=== PATIENT | female | born 1980 | race Hispanic/Latino ===

== ENCOUNTER 2017-03-05 13:20 | Outpatient (CLI) | payer BC ==
--- NOTE | 2017-03-05 15:52 | RAD ---
LEFT KNEE FOUR VIEW 03/05/17 HISTORY: N25.562 COMPARISON: Knee radiograph 2013. FINDINGS: There is minimal medial compartment narrowing. Small osteophytes involve all three compartments. No j oint effusion. No acute fracture or malalignment. IMPRESSION: Low grade degenerative disease medial compartment. POS: [facility]
== END 2017-03-05 13:21 | disposition home or self-care (01) ==
LOC: SCSRAD 13:20
PROVIDERS: ATTEND Family Medicine
DX: M25.562 Pain in left knee (principal); M17.12 Unilateral primary osteoarthritis, left knee

== ENCOUNTER 2018-05-09 12:23 | Emergency (ER) | payer BC ==
[2018-05-09] MEDS ORDERED: Ketorolac Tromethamine 60 MG/2 ML VIAL ONE (13:55)
== END 2018-05-09 14:26 | disposition home or self-care (01) ==
LOC: ERS 12:23
DX: J06.9 Acute upper respiratory infection, unspecified (principal); M06.9 Rheumatoid arthritis, unspecified; E11.9 Type 2 diabetes mellitus without complications; I10 Essential (primary) hypertension
CPT/HCPCS: 87804; 96372; J1885

== ENCOUNTER 2018-12-02 13:36 | Outpatient (CLI) | payer BC ==
--- NOTE | 2018-12-02 14:54 | MMO ---
Bilateral MAMMO Bilat Screen [facility]DI+[facility]ONG. CLINICAL HISTORY: Patient is 38 years old and is seen for screening. The patient has the following family history of breast cancer: maternal grandmother and maternal aunt. VIEWS: The views performed were: bilateral craniocaudal with tomosynthesis and bilateral mediolateral oblique with tomosynthesis. This study has been interpreted with the assistance of computer-aided detection. MAMMOGRAM FINDINGS: There are scattered fibroglandular densities. 11 mm nodule posterior mid left breast. In the right breast, there are no suspicious masses, calcifications or areas of architectural distortion. IMPRESSION: FINDING IN THE LEFT BREAST REQUIRES ADDITIONAL EVALUATION. ADDITIONAL IMAGING. THE RESULTS OF THIS EXAM WERE SENT TO THE PATIENT. ACR BI-RADS Category 0 - Incomplete: Need additional imaging evaluation. [facility] will notify the patient of the need for additional imaging services. MAMMOGRAPHY NOTE: 1. A negative mammogram report should not delay a biopsy if a dominant of clinically suspicious mass is present. 2. Approximately 10% to 15% of breast cancers are not detected by mammography. 3. Adenosis and dense breasts may obscure an underlying neoplasm. Reported by: TANYA REDDY MD Electonically Signed: [id number]
== END 2018-12-02 13:37 | disposition home or self-care (01) ==
LOC: BICMAMMO 13:36
PROVIDERS: ATTEND Family Medicine
DX: Z12.31 Encounter for screening mammogram for malignant neoplasm of breast (principal); Z80.3 Family history of malignant neoplasm of breast
CPT/HCPCS: 77063; 77067

== ENCOUNTER 2018-12-10 13:57 | Outpatient (CLI) | payer BC ==
--- NOTE | 2018-12-10 14:31 | MMO ---
Left Breast MAMMO Unilat Diag DDI LT+JONG. CLINICAL HISTORY: Patient is 38 years old and is seen for additional evaluation requested at current screening. The patient has the following family history of breast cancer: maternal grandmother and maternal aunt. The patient has no personal history of cancer. VIEWS: The views performed were: left craniocaudal with tomosynthesis; left mediolateral oblique with tomosynthesis; and left mediolateral with tomosynthesis. FILMS COMPARED: The present examination has been compared to prior imaging studies performed at [facility] on 12/02/2018 and 12/10/2018. This study has been interpreted with the assistance of computer-aided detection. MAMMOGRAM FINDINGS: There are scattered fibroglandular densities. There is a low density, oval mass measuring 10 millimeters with circumscribed margins seen in the central region of the left breast. The mass was shown to be a cyst on ultrasound. There are no suspicious masses, suspicious calcifications, or new areas of architectural distortion. IMPRESSION: THERE IS NO MAMMOGRAPHIC EVIDENCE OF MALIGNANCY. A ROUTINE FOLLOW-UP MAMMOGRAM IN 1 YEAR IS RECOMMENDED. THE RESULTS OF THIS EXAM WERE SENT TO THE PATIENT. ACR BI-RADS Category 2 - Benign finding MAMMOGRAPHY NOTE: 1. A negative mammogram report should not delay a biopsy if a dominant of clinically suspicious mass is present. 2. Approximately 10% to 15% of breast cancers are not detected by mammography. 3. Adenosis and dense breasts may obscure an underlying neoplasm. Reported by: CRYSTAL GREEN MD Electonically Signed: [id number]
--- NOTE | 2018-12-10 14:54 | ULT ---
LIMITED LEFT BREAST ULTRASOUND: DATE: 12/10/2018. PROVIDED CLINICAL HISTORY: Abnormal mammogram. FINDINGS: Limited sonographic interrogation of the left breast was performed in the region of mammographic conc leeroy. A simple-appearing cyst is seen. No concerning sonographic findings are evident. IMPRESSION: BIRADS category 2 - benign findings. Annual screening mammography recommended. POS: OFF
== END 2018-12-10 13:58 | disposition home or self-care (01) ==
LOC: BICMAMMO 13:57
PROVIDERS: ATTEND Family Medicine
DX: R92.2 Inconclusive mammogram (principal); R92.8 Other abnormal and inconclusive findings on diagnostic imaging of breast
CPT/HCPCS: G0279

== ENCOUNTER 2019-09-30 10:32 | Outpatient (CLI) | payer OTHER ==
--- NOTE | 2019-09-30 11:12 | ULT ---
ULTRASOUND ABDOMEN: HISTORY: Abdominal pain, abnormal LFTs. FINDINGS: The liver demonstrates increased echogenicity consistent with fatty infiltration. No focal mass or ab normal biliary ductal dilation is seen. The spleen is mildly enlarged measuring 13.8 cm. The patient is post colostomy. The kidneys and visualized portions of the pancreas, aorta and IVC appear normal. The common duct measures 9mm in diameter. No free fluid is seen. IMPRESSION: 1. Fatty liver 2. Mild splenomegaly 3. Status post cholecystectomy with dilated common bile duct.
== END 2019-09-30 10:33 | disposition home or self-care (01) ==
LOC: BICULT 10:32
PROVIDERS: ATTEND Internal Medicine Rheumatology
DX: R79.89 Other specified abnormal findings of blood chemistry (principal); K76.0 Fatty (change of) liver, not elsewhere classified; R16.1 Splenomegaly, not elsewhere classified; K83.8 Other specified diseases of biliary tract; Z90.49 Acquired absence of other specified parts of digestive tract
CPT/HCPCS: 93975

== ENCOUNTER 2022-03-19 12:28 | Emergency (ER) | payer SELFPAY | END 2022-03-19 13:30 | disposition home or self-care (01) | LOC: ERS 12:28 | DX: L50.0 Allergic urticaria (principal) | CPT/HCPCS: 99282 ==

== ENCOUNTER 2023-01-10 15:46 | Outpatient (CLI) | payer OTHER | END 2023-01-10 15:47 | disposition home or self-care (01) | LOC: DTY/OP 15:46 | PROVIDERS: ATTEND Nurse Practitioner Family | DX: E11.9 Type 2 diabetes mellitus without complications (principal) | CPT/HCPCS: 97802 ==

== ENCOUNTER 2023-01-17 11:38 | Outpatient (CLI) | payer OTHER | END 2023-01-17 11:39 | disposition home or self-care (01) | LOC: DTY/OP 11:38 | PROVIDERS: ATTEND Nurse Practitioner Family | DX: E11.9 Type 2 diabetes mellitus without complications (principal) | CPT/HCPCS: 97802 ==

== ENCOUNTER 2023-01-18 09:28 | Outpatient (CLI) | payer OTHER | END 2023-01-18 09:29 | disposition home or self-care (01) | LOC: DTY/OP 09:28 | PROVIDERS: ATTEND Nurse Practitioner Family | DX: E11.9 Type 2 diabetes mellitus without complications (principal) | CPT/HCPCS: 97802 ==

== ENCOUNTER 2023-01-24 12:59 | Outpatient (CLI) | payer OTHER | END 2023-01-24 13:00 | disposition home or self-care (01) | LOC: DTY/OP 12:59 | PROVIDERS: ATTEND Nurse Practitioner Family | DX: E11.9 Type 2 diabetes mellitus without complications (principal) | CPT/HCPCS: 97802 ==

== ENCOUNTER 2023-01-25 09:27 | Outpatient (CLI) | payer OTHER | END 2023-01-25 09:28 | disposition home or self-care (01) | LOC: DTY/OP 09:27 | PROVIDERS: ATTEND Nurse Practitioner Family | DX: E11.9 Type 2 diabetes mellitus without complications (principal) | CPT/HCPCS: 97802 ==

== ENCOUNTER 2023-01-28 15:57 | Outpatient (CLI) | payer OTHER | END 2023-01-28 15:58 | disposition home or self-care (01) | LOC: DTY/OP 15:57 | PROVIDERS: ATTEND Nurse Practitioner Family | DX: E11.9 Type 2 diabetes mellitus without complications (principal) | CPT/HCPCS: 97802 ==

== ENCOUNTER 2023-01-29 10:31 | Outpatient (CLI) | payer OTHER | END 2023-01-29 10:32 | disposition home or self-care (01) | LOC: DTY/OP 10:31 | PROVIDERS: ATTEND Nurse Practitioner Family | DX: E11.9 Type 2 diabetes mellitus without complications (principal) | CPT/HCPCS: 97802 ==

== ENCOUNTER 2023-01-30 08:59 | Outpatient (CLI) | payer OTHER | END 2023-01-30 09:00 | disposition home or self-care (01) | LOC: DTY/OP 08:59 | PROVIDERS: ATTEND Nurse Practitioner Family | DX: E11.9 Type 2 diabetes mellitus without complications (principal) | CPT/HCPCS: 97802 ==

== ENCOUNTER 2023-01-31 15:32 | Outpatient (CLI) | payer OTHER | END 2023-01-31 15:33 | disposition home or self-care (01) | LOC: DTY/OP 15:32 | PROVIDERS: ATTEND Nurse Practitioner Family | DX: E11.9 Type 2 diabetes mellitus without complications (principal) | CPT/HCPCS: 97802 ==

== ENCOUNTER 2023-02-01 13:06 | Outpatient (CLI) | payer OTHER | END 2023-02-01 13:07 | disposition home or self-care (01) | LOC: DTY/OP 13:06 | PROVIDERS: ATTEND Nurse Practitioner Family | DX: E11.9 Type 2 diabetes mellitus without complications (principal) | CPT/HCPCS: 97802 ==

== ENCOUNTER 2023-02-04 15:54 | Outpatient (CLI) | payer OTHER | END 2023-02-04 15:55 | disposition home or self-care (01) | LOC: DTY/OP 15:54 | PROVIDERS: ATTEND Nurse Practitioner Family | DX: E11.9 Type 2 diabetes mellitus without complications (principal) | CPT/HCPCS: 97802 ==

== ENCOUNTER 2023-02-05 11:16 | Outpatient (CLI) | payer OTHER | END 2023-02-05 11:17 | disposition home or self-care (01) | LOC: DTY/OP 11:16 | PROVIDERS: ATTEND Nurse Practitioner Family | DX: E11.9 Type 2 diabetes mellitus without complications (principal) | CPT/HCPCS: 97802 ==

== ENCOUNTER 2023-02-12 08:40 | Emergency (ER) | payer OTHER ==
[2023-02-12] MEDS ORDERED: Ketorolac Tromethamine 30 MG/ML VIAL ONE (09:06)
[2023-02-12] MEDS ORDERED: Orphenadrine Citrate 60 MG/2 ML VIAL ONE (09:12)
== END 2023-02-12 09:40 | disposition home or self-care (01) ==
LOC: ERS 08:40
DX: M75.101 Unspecified rotator cuff tear or rupture of right shoulder, not specified as traumatic (principal); M54.2 Cervicalgia; I10 Essential (primary) hypertension; E11.9 Type 2 diabetes mellitus without complications; Z79.84 Long term (current) use of oral hypoglycemic drugs; Z79.899 Other long term (current) drug therapy
CPT/HCPCS: 96372; 99283; J1885; J2360

== ENCOUNTER 2023-03-14 21:20 | Inpatient (IN) | payer OTHER ==
[~2023-03-14 21:20] MED LIST: Iopamidol-370 76% 500 ML MDV (1 ML CHARGE) ONE
[2023-03-14 22:53] LABS: #Eosinphils 0.2 thou/uL (0.0-0.7); #Monocytes 0.4 thou/uL (0.11-0.59); #Neutrophils 7.4 thou/uL (1.40-6.50); %Basophils 0.2 % (0.0-1.0); %Eosinophils 1.9 % (0.0-10.0); %Lymphocytes 11.1 % (21.0-51.0); %Neutrophils 82.2 % (42.0-75.0); Hematocrit 30.5 % (36.0-47.0); Mean Corpuscular HGB CONC 29.5 g/dL (32.0-36.0); Mean Corpuscular Volume 77.8 fl (78.0-98.0); Mean Platelet Volume 10.5 fL (7.4-10.4); Platelet Count 357 10x3/uL (130-400); RBC Distribution Width 15.1 % (11.5-14.5); Red Blood Cell (RBC) Count 3.92 mill/uL (4.20-5.40)
[2023-03-14] MEDS ORDERED: Morphine 4 MG/ML VIAL ONE (23:16)
[2023-03-14 23:17] LABS: ALT (SGPT) 9 U/L (8-55); AST (SGOT) 14 U/L (5-34); Albumin 3.5 g/dL (3.5-5.0); Alkaline Phosphatase 69 U/L (40-110); Anion Gap 16 mmol/L (10-20); BUN (Urea Nitrogen) 11 mg/dL (7.0-18.7); Bilirubin, Total 0.6 mg/dL (0.2-1.2); Calc. Creatinine Clearance 0 mL/min (70-130); Calcium 8.9 mg/dL (7.8-10.44); Carbon Dioxide 22 mmol/L (22-29); Chloride 106 mmol/L (98-107); Estimated GFR 113; Globulin 3.8 g/dL (2.4-3.5); Glucose 212 mg/dL (70-105); Potassium 3.8 mmol/L (3.5-5.1); Protein, Total 7.3 g/dL (6.0-8.3); Sodium 140 mmol/L (136-145)
[2023-03-14 23:19] LABS: Troponin I 0.095 ng/mL (< 0.028)
[2023-03-14] MEDS ORDERED: Furosemide 40 MG (4 mL) VIAL ONE (23:46)
[2023-03-14] MEDS ORDERED: Aspirin Chewable 81 MG TAB ONE (23:46)
[2023-03-15] MEDS ORDERED: Ondansetron ODT 4 MG TAB PO PRN (00:23)
[2023-03-15] MEDS ORDERED: Acetaminophen 650 MG Suppository PR PRN (00:23)
[2023-03-15] MEDS ORDERED: Acetaminophen 325 MG TAB PO PRN (00:23)
[2023-03-15] MEDS ORDERED: hydrALAZINE 20 MG/ML VIAL SLOW IVP PRN (00:23)
[2023-03-15] MEDS ORDERED: Ondansetron PF 4 MG/2 ML Vial IVP PRN (00:23)
[2023-03-15] MEDS ORDERED: Dextrose 50% Abboject 50 ML SYRINGE SLOW IVP PRN (00:49)
[2023-03-15] MEDS ORDERED: Dextrose 5% in Water 1,000 ML IV PRN (00:49)
[2023-03-15] MEDS ORDERED: Glucagon 1 MG/ML KIT IM PRN (00:49)
[2023-03-15] MEDS ORDERED: HumaLOG 300 UNITS/3 ML VIAL SC PRN (00:49)
[2023-03-15 00:50] LABS: SARS-CoV-2 NAA Rapid Test Not Detected (NotDetected)
[2023-03-15] MEDS ORDERED: Electrolyte Replacement Protocol FS SCH (01:00)
[2023-03-15] MEDS: hydrALAZINE 20 MG/ML VIAL SLOW IVP PRN ×2 (01:09→11:10)
[2023-03-15] MEDS ORDERED: hydrALAZINE 20 MG/ML VIAL ONE (01:12)
[2023-03-15] MEDS ORDERED: Nitroglycerin 2% Ointment 1 INCH/1 GM Packet TOP SCH (01:15)
[2023-03-15 02:12] LABS: Magnesium 1.5 mg/dL (1.6-2.6)
[2023-03-15] MEDS ORDERED: Nitroglycerin 2% Ointment 1 INCH/1 GM Packet ONE (02:23)
[2023-03-15] MEDS ORDERED: Magnesium 2 GM/50 ML(in water) 2 GM in Premix 1 BAG IVPB SCH (03:00)
[2023-03-15 03:09] LABS: #Eosinphils 0.2 thou/uL (0.0-0.7); #Monocytes 0.4 thou/uL (0.11-0.59); #Neutrophils 6.8 thou/uL (1.40-6.50); %Basophils 0.1 % (0.0-1.0); %Eosinophils 2.4 % (0.0-10.0); %Lymphocytes 12.4 % (21.0-51.0); %Monocytes 4.8 % (0.0-10.0); %Neutrophils 79.8 % (42.0-75.0); Hematocrit 30.9 % (36.0-47.0); Hemoglobin 9.2 g/dL (12.0-16.0); Mean Corpuscular HGB CONC 29.8 g/dL (32.0-36.0); Mean Corpuscular Hemoglobin 23.3 pg (27.0-31.0); Mean Corpuscular Volume 78.2 fl (78.0-98.0); Mean Platelet Volume 10.1 fL (7.4-10.4); Platelet Count 347 10x3/uL (130-400); RBC Distribution Width 15.2 % (11.5-14.5); Red Blood Cell (RBC) Count 3.95 mill/uL (4.20-5.40); White Blood Cell (WBC) Count 8.5 10x3/uL (4.8-10.8)
[2023-03-15 03:46] LABS: Anion Gap 15 mmol/L (10-20); BUN (Urea Nitrogen) 10 mg/dL (7.0-18.7); Calc. Creatinine Clearance 229 mL/min (70-130); Carbon Dioxide 23 mmol/L (22-29); Chloride 104 mmol/L (98-107); Estimated GFR 113; Glucose 195 mg/dL (70-105); Magnesium 1.5 mg/dL (1.6-2.6); Potassium 3.5 mmol/L (3.5-5.1); Sodium 138 mmol/L (136-145)
[2023-03-15] MEDS ORDERED: Magnesium 2 GM/50 ML BAG (IN WATER) ONE (04:29)
[2023-03-15 05:50] LABS: Troponin I 0.111 ng/mL (< 0.028)
[2023-03-15] MEDS ORDERED: Potassium Chloride 20 MEQ TAB PO SCH (08:00)
[2023-03-15] MEDS ORDERED: Potassium Chloride 20 MEQ TAB ONE (08:13)
[2023-03-15] MEDS ORDERED: Furosemide 40 MG (4 mL) VIAL ONE ×3 (08:13→13:34)
[2023-03-15] MEDS ORDERED: Furosemide 40 MG (4 mL) VIAL SLOW IVP SCH ×2 (09:00→10:30)
[2023-03-15] MEDS ORDERED: Lisinopril 20 MG TAB PO SCH (10:30)
[2023-03-15] MEDS ORDERED: Amlodipine 10 MG TAB PO SCH (10:30)
[2023-03-15] MEDS ORDERED: Amlodipine 5 MG TAB ONE (10:40)
[2023-03-15] MEDS ORDERED: Lisinopril 10 MG TAB ONE (10:40)
[2023-03-15] MEDS ORDERED: Acetaminophen 500 MG TAB ONE (11:04)
[2023-03-15] MEDS ORDERED: HumaLOG 300 UNITS/3 ML VIAL ONE (11:05)
[2023-03-15] MEDS: HumaLOG 300 UNITS/3 ML VIAL SC PRN (11:07)
[2023-03-15] MEDS: Acetaminophen 500 MG TAB PO SCH ×2 (11:53→22:04)
[2023-03-15] MEDS: Furosemide 40 MG (4 mL) VIAL SLOW IVP SCH (13:38)
[2023-03-16] MEDS: hydrALAZINE 20 MG/ML VIAL SLOW IVP PRN ×2 (03:02→21:19)
[2023-03-16 06:16] LABS: #Eosinphils 0.2 thou/uL (0.0-0.7); #Monocytes 0.5 thou/uL (0.11-0.59); #Neutrophils 6.7 thou/uL (1.40-6.50); %Basophils 0.1 % (0.0-1.0); %Eosinophils 2.4 % (0.0-10.0); %Lymphocytes 11.2 % (21.0-51.0); %Monocytes 5.5 % (0.0-10.0); %Neutrophils 80.3 % (42.0-75.0); Hematocrit 32.4 % (36.0-47.0); Hemoglobin 9.5 g/dL (12.0-16.0); Mean Corpuscular HGB CONC 29.3 g/dL (32.0-36.0); Mean Corpuscular Hemoglobin 22.8 pg (27.0-31.0); Mean Corpuscular Volume 77.9 fl (78.0-98.0); Mean Platelet Volume 9.9 fL (7.4-10.4); Platelet Count 362 10x3/uL (130-400); RBC Distribution Width 15.5 % (11.5-14.5); Red Blood Cell (RBC) Count 4.16 mill/uL (4.20-5.40); White Blood Cell (WBC) Count 8.3 10x3/uL (4.8-10.8)
[2023-03-16] MEDS: Furosemide 40 MG (4 mL) VIAL SLOW IVP SCH ×2 (06:23→14:28)
[2023-03-16 06:49] LABS: Anion Gap 12 mmol/L (10-20); BUN (Urea Nitrogen) 12 mg/dL (7.0-18.7); Calc. Creatinine Clearance 232 mL/min (70-130); Calcium 9.1 mg/dL (7.8-10.44); Carbon Dioxide 27 mmol/L (22-29); Chloride 103 mmol/L (98-107); Estimated GFR 114; Glucose 210 mg/dL (70-105); Potassium 3.6 mmol/L (3.5-5.1); Sodium 138 mmol/L (136-145)
[2023-03-16 08:59] VITALS: BMI 48.6
[2023-03-16] MEDS: Acetaminophen 500 MG TAB PO SCH ×3 (09:14→21:18)
[2023-03-16] MEDS: Amlodipine 10 MG TAB PO SCH (09:14)
[2023-03-16] MEDS: Lisinopril 20 MG TAB PO SCH (09:15)
[2023-03-16] MEDS: HumaLOG 300 UNITS/3 ML VIAL SC PRN (11:25)
[2023-03-17] MEDS: Furosemide 40 MG (4 mL) VIAL SLOW IVP SCH (05:24)
[2023-03-17] MEDS ORDERED: Benzocaine/Menthol 1 LOZ LOZ PO PRN (05:43)
[2023-03-17 05:52] LABS: #Eosinphils 0.2 thou/uL (0.0-0.7); #Monocytes 0.5 thou/uL (0.11-0.59); #Neutrophils 7.7 thou/uL (1.40-6.50); %Basophils 0.1 % (0.0-1.0); %Eosinophils 2.4 % (0.0-10.0); %Lymphocytes 9.2 % (21.0-51.0); %Monocytes 5.1 % (0.0-10.0); %Neutrophils 82.8 % (42.0-75.0); Hematocrit 33.7 % (36.0-47.0); Hemoglobin 9.8 g/dL (12.0-16.0); Mean Corpuscular HGB CONC 29.1 g/dL (32.0-36.0); Mean Corpuscular Hemoglobin 22.8 pg (27.0-31.0); Mean Corpuscular Volume 78.6 fl (78.0-98.0); Mean Platelet Volume 9.8 fL (7.4-10.4); Platelet Count 369 10x3/uL (130-400); RBC Distribution Width 15.5 % (11.5-14.5); Red Blood Cell (RBC) Count 4.29 mill/uL (4.20-5.40); White Blood Cell (WBC) Count 9.3 10x3/uL (4.8-10.8)
[2023-03-17 06:31] LABS: Anion Gap 14 mmol/L (10-20); BUN (Urea Nitrogen) 14 mg/dL (7.0-18.7); Calc. Creatinine Clearance 229 mL/min (70-130); Calcium 9.2 mg/dL (7.8-10.44); Carbon Dioxide 23 mmol/L (22-29); Chloride 104 mmol/L (98-107); Estimated GFR 113; Glucose 206 mg/dL (70-105); Potassium 3.7 mmol/L (3.5-5.1); Sodium 137 mmol/L (136-145)
[2023-03-17] MEDS: HumaLOG 300 UNITS/3 ML VIAL SC PRN (07:20)
[2023-03-17] MEDS ORDERED: Folic Acid 1 MG TAB PO SCH (09:00)
[2023-03-17] MEDS ORDERED: Rosuvastatin 5 MG TAB PO SCH (09:00)
[2023-03-17] MEDS ORDERED: Fenofibrate Nanocrystallized 145 MG TAB PO SCH (09:00)
[2023-03-17] MEDS: Acetaminophen 500 MG TAB PO SCH (09:18)
[2023-03-17] MEDS: Amlodipine 10 MG TAB PO SCH (09:19)
[2023-03-17] MEDS: Lisinopril 20 MG TAB PO SCH (09:19)
[2023-03-17] MEDS ORDERED: Ibuprofen 200 MG TAB PO SCH (09:30)
[2023-03-17] MEDS ORDERED: predniSONE 20 MG TAB PO SCH (09:30)
[2023-03-17 11:42] VITALS: BP 135/70; TEMP 98.1
== END 2023-03-17 12:32 | disposition home or self-care (01) | DRG 280 ==
LOC: ERS 21:20 → ERHOLD 23:55 → OBSVTOIN 03-15 10:34 → 2SW 03-15 14:31
PROVIDERS: ADMIT Student in an Organized Health Care Education/Training Program; ATTEND Nurse Practitioner Family
DX: I11.0 Hypertensive heart disease with heart failure (principal); I50.33 Acute on chronic diastolic (congestive) heart failure; I21.A1 Myocardial infarction type 2; J96.01 Acute respiratory failure with hypoxia; Z68.42 Body mass index [BMI] 45.0-49.9, adult; I16.0 Hypertensive urgency; E11.9 Type 2 diabetes mellitus without complications; Z79.899 Other long term (current) drug therapy; Z79.84 Long term (current) use of oral hypoglycemic drugs; Z98.51 Tubal ligation status; Z90.49 Acquired absence of other specified parts of digestive tract; D64.9 Anemia, unspecified; M06.9 Rheumatoid arthritis, unspecified; E66.01 Morbid (severe) obesity due to excess calories; Z11.52 Encounter for screening for COVID-19
CPT/HCPCS: 36415; 36416; 71045; 71275; 80048; 80053; 83735; 83880; 84484; 85025; 93005; 93306; 93798; 96374; 96375; 96376; G0378; J0360; J1815; J1940; J2270; J3475; J7512